=== PATIENT | female | born 1985 | race Caucasian/White ===

== ENCOUNTER 2016-09-21 11:42 | Inpatient (IN) | payer OTHER ==
[2016-09-24 16:30] VITALS: BMI 35.9
[2016-09-24 21:17] LABS: AMPHETAMINES/METHAMPHETAMINES NEGATIVE (NEGATIVE); COCAINE NEGATIVE (NEGATIVE); MARIJUANA NEGATIVE (NEGATIVE); METHADONE NEGATIVE (NEGATIVE); OPIATES NEGATIVE (NEGATIVE); TRICYCLIC ANTIDEPRESSANTS NEGATIVE (NEGATIVE)
[2016-09-25] MEDS ORDERED: OXYTOCIN IN NS 500 ML IV ONE (01:24)
[2016-09-25] MEDS ORDERED: LIDOCAINE Viscous 2% 15 ML UDCUP ONE (01:24)
[2016-09-25] MEDS ORDERED: LIDOCAINE 1% (PRES FREE) 30 ML VIAL ONE (01:24)
[2016-09-25] MEDS ORDERED: MINERAL OIL 25 ML BOT ONE (01:24)
[2016-09-25] MEDS ORDERED: OXYTOCIN IN NS 334 ML IV PRN (10:47)
[2016-09-25] MEDS ORDERED: OXYTOCIN IN NS 500 ML IV PRN (10:48)
[2016-09-25] MEDS ORDERED: LACTATED RINGERS 1,000 ML IV SCH (11:00)
[2016-09-25 17:38] LABS: AMPHETAMINES/METHAMPHETAMINES NEGATIVE (NEGATIVE); COCAINE NEGATIVE (NEGATIVE); MARIJUANA NEGATIVE (NEGATIVE); METHADONE NEGATIVE (NEGATIVE); OPIATES NEGATIVE (NEGATIVE); TRICYCLIC ANTIDEPRESSANTS NEGATIVE (NEGATIVE)
[2016-09-26] MEDS ORDERED: OXYTOCIN IN NS 500 ML IV ONE (13:16)
[2016-09-26] MEDS ORDERED: OXYTOCIN 10 UNITS/ML VIAL ONE (13:16)
[2016-09-26] MEDS ORDERED: MINERAL OIL 25 ML BOT ONE (13:17)
[2016-09-26] MEDS ORDERED: LIDOCAINE 1% (PRES FREE) 30 ML VIAL ONE (13:17)
[2016-09-26] MEDS ORDERED: LIDOCAINE Viscous 2% 15 ML UDCUP ONE (13:17)
[2016-09-26 14:09] LABS: HEMATOCRIT 36.9 % (37.0-47.0); HEMOGLOBIN 12.2 gm/l (12.0-16.0); MEAN CELL VOLUME 96.3 fl (81.0-99.0); MEAN CORPUSCULAR HEMOGLOBIN 31.9 pg (27.0-31.0); MEAN CORPUSCULAR HGB CONC 33.1 g/dl (33.0-37.0); RED CELL DISTRIBUTION WIDTH 12.8 % (11.5-14.5)
--- NOTE | 2016-09-26 16:57 | PCMAN ---
OB Admission Note - History : 1 Term: 0 : 0 Abortions (S&E): 0 Livin EDC:: 09/21/16 Gestational Age (weeks): 40 Days (#/7): 2 Admit Cervical Dilation:: 2.5 Admit Cervical Effacement (%):: 80 Admit Station:: -2 Admit Presentaton:: vtx Membrane Status: Intact Contractions: Yes Contraction Frequency:: occ/irreg Heart Rate:: 140 Status:: category1 Summary of Course:: Pt 40.5 wk. Pt homeless, admitted 09/24 for induction. Hospital too busy to do it until Today, - Labs Blood Type: A (+) positive
[2016-09-26] MEDS ORDERED: FENTANYL/ROPIVACAINE EPIDURAL 250 ML EP ONE (17:03)
[2016-09-26] MEDS: FENTANYL/ROPIVACAINE EPIDURAL 250 ML EP SCH (17:40)
[2016-09-26] MEDS ORDERED: SODIUM CHLORIDE 0.9% 500 ML IV PRN (17:41)
[2016-09-26] MEDS ORDERED: LACTATED RINGERS 500 ML IV PRN (17:41)
[2016-09-26] MEDS ORDERED: ONDANSETRON 4 MG/2ML 2 ML VIAL IV PRN (17:41)
[2016-09-26] MEDS ORDERED: NALBUPHINE HCL 20 MG/ML AMP IV PRN (17:41)
[2016-09-26] MEDS ORDERED: EPHEDRINE SULFATE 50 MG/ML 1ML VIAL IV PRN (17:41)
[2016-09-26] MEDS ORDERED: DIPHENHYDRAMINE HCL 50 MG/1 ML VIAL IV PRN (17:41)
[2016-09-26] MEDS ORDERED: NALOXONE HCL 0.4 MG/ML VIAL IV PRN (17:41)
[2016-09-26] MEDS: LACTATED RINGERS 1,000 ML IV SCH (19:27)
--- NOTE | 2016-09-26 21:02 | PDOC36 ---
Provider Note Note: Pt complet, -2. ROT SE placed
--- NOTE | 2016-09-26 21:50 | PCMDEL ---
Delivery Note - Delivery Delivery (Date): 09/26/16 Gender: Female Presentation: Cephalic Position: OA Umbilical Cord: 3 Vessel Delayed Cord Clamping:: < 1-2 min Placenta:: spontaneous and complete EBL:: 350ml Perineum:: midline episiotomy Suture:: 2-0 chromic Anesthesia/Meds:: epidural
[2016-09-26] MEDS ORDERED: BENZOCAINE/MENTHOL 60 APPLIC/BOT TP PRN (22:02)
[2016-09-26] MEDS ORDERED: HYDROCODONE/ACETAMINOPHEN 5/325MG TABLET PO PRN (22:02)
[2016-09-26] MEDS ORDERED: CALCIUM CARBONATE 500 MG TAB.CHEW PO PRN (22:02)
[2016-09-26] MEDS ORDERED: LANOLIN 50 APPLIC/7G TUBE TP PRN (22:02)
[2016-09-26] MEDS ORDERED: MEASLES,MUMPS&RUBELLA VACCINE 0.5 ML VIAL SUB-Q V ONE (22:02)
[2016-09-26] MEDS ORDERED: DIPHTH,PERTUSS(ACELL),TET VAC 0.5 ML VIAL IM V ONE (22:02)
[2016-09-26] MEDS ORDERED: OXYTOCIN IN NS 167 ML IV PRN (22:02)
[2016-09-26] MEDS ORDERED: MAGNESIUM HYDROXIDE 30 ML UDCUP PO PRN (22:02)
[2016-09-26] MEDS ORDERED: MINERAL OIL 25 ML BOT TP ONE (22:11)
[2016-09-27] MEDS: IBUPROFEN 800 MG TABLET PO PRN ×4 (04:18→22:05)
--- NOTE | 2016-09-27 07:01 | PDOC44 ---
- Subjective Day: 1 Reports Pain Tolerable, Reports Lochia Light, Reports Tolerating Regular Diet - Objective Temp Pulse Resp BP Pulse Ox 96.9 F 87 16 92/57 09/27/16 01:44 09/27/16 01:44 09/27/16 01:44 09/27/16 01:44 Lab Results 09/26/16 13:30 WBC 9.6 RBC 3.83 L Hgb 12.2 Hct 36.9 L Plt Count 189 09/26/16 13:30 MCH 31.9 H Current Medications Generic Name Dose Route Start Last Admin Trade Name Freq PRN Reason Stop Dose Admin Acetaminophen/Hydrocodone Bitart 1 - 2 tab 09/26/16 22:02 [place] 5/325 PO Q4H PRN Pain (Moderate) Benzocaine/Menthol 1 applic 09/26/16 22:02 09/27/16 00:13 Dermoplast TP 1 bot PRN PRN Administration Patient Comfort Calcium Carbonate/Glycine 500 - 1,000 mg 09/26/16 22:02 Tums PO BID PRN Indigestion Docusate Sodium 100 mg 09/27/16 09:00 Colace PO DAILY ANGEL Emollient Ointment 1 applic 09/26/16 22:02 Tvd-L-Crolls TP PRN PRN sore nipples Ropivacaine/Fentanyl/NS 250 mls @ 0 mls/hr 09/26/16 17:41 09/26/16 17:40 Fentanyl 2 Mcg/Ml + Ropivacaine 0.125% Ep Bag EP 12 mls/hr EPI ANGEL Administration Protocol Per Protocol OXYTOCIN IN NS 167 mls @ 167 mls/hr 09/26/16 22:02 Oxytocin-Ns 30 Unit/500 Ml IV X1 PRN Bleeding/3rd stage labor Ibuprofen 800 mg 09/26/16 22:02 09/27/16 04:18 Motrin PO 800 mg Q6H PRN Administration Pain (Mild) Magnesium Hydroxide 30 ml 09/26/16 22:02 Milk Of Magnesia PO BEDTIME PRN Constipation Sodium Chloride 10 ml 09/26/16 22:02 09/27/16 04:19 Normal Saline 10ml Flush IV 10 ml PRN PRN Administration IV Flush - Physical Exam General: Afebrile Psych/Mental Status: Mood/Affect Appropriate Breast: Soft Fundus: Firm Abdomen: Normal Bowel Sounds Genitourinary: Normal Female Genitalia Disposition: Stable, Anticipate DC Home Tomorrow
[2016-09-27 07:10] LABS: HEMOGLOBIN 8.9 gm/l (12.0-16.0)
[2016-09-27] MEDS ORDERED: DOCUSATE SODIUM 100 MG CAPSULE PO SCH (09:00)
[2016-09-27] MEDS: LACTATED RINGERS 1,000 ML IV SCH (18:32)
[2016-09-27] MEDS: FENTANYL/ROPIVACAINE EPIDURAL 250 ML EP SCH (18:32)
[2016-09-27 21:54] VITALS: BP 111/72
== END 2016-09-27 23:59 | disposition still patient (30) | DRG 775 ==
LOC: EDSTATUS 14:20 → FBC 09-24 14:22
PROVIDERS: ADMIT Obstetrics & Gynecology; ATTEND Obstetrics & Gynecology
PROC: 0W8NXZZ Division of Female Perineum, External Approach (ICD-10-PCS; 2016-09-24)
PROC: 10E0XZZ Delivery of Products of Conception, External Approach (ICD-10-PCS; principal; 2016-09-26)
DX: O80 Encounter for full-term uncomplicated delivery (principal); Z3A.40 40 weeks gestation of pregnancy; Z37.0 Single live birth